=== PATIENT | female | born 1990 | race Caucasian/White ===

== ENCOUNTER 2017-07-22 16:30 | Observation (INO) | payer BC ==
[2017-07-22] MEDS ORDERED: METHOTREXATE SODIUM IM ONE (17:00)
== END 2017-07-22 17:50 | disposition home or self-care (01) ==
LOC: FLD 16:30
PROVIDERS: ADMIT Obstetrics & Gynecology; ATTEND Obstetrics & Gynecology
PROC: 3E023GC Introduction of Other Therapeutic Substance into Muscle, Percutaneous Approach (ICD-10-PCS; principal; 2017-07-22)
DX: O36.80X0 Pregnancy with inconclusive fetal viability, not applicable or unspecified (principal); Z3A.00 Weeks of gestation of pregnancy not specified
CPT/HCPCS: 96372; G0378; J9260